=== PATIENT | female | born 1955 | race Two or more races ===

== ENCOUNTER 2016-06-23 22:52 | Emergency (ER) | payer OTHER ==
[~2016-06-23] VITALS: Ht 165.1 cm; Wt 90.7 kg
[2016-06-23 22:59] VITALS: BP 146/88
== END 2016-06-24 00:29 | disposition home or self-care (01) ==
LOC: ER 22:52
DX: S90.31XA Contusion of right foot, initial encounter (principal); E11.9 Type 2 diabetes mellitus without complications; I10 Essential (primary) hypertension; W20.8XXA Other cause of strike by thrown, projected or falling object, initial encounter; Y93.89 Activity, other specified; Y92.89 Other specified places as the place of occurrence of the external cause; Y99.9 Unspecified external cause status
CPT/HCPCS: 73630; 99282; A4606; Z7610